=== PATIENT | female | born 1930 | race Asian ===

== ENCOUNTER 2017-06-14 09:58 | Inpatient (IN) | payer MEDICARE, OTHER ==
[~2017-06-14] VITALS: Ht 152.4 cm; Wt 40.8 kg
[2017-06-14 09:58] VITALS: BP 106/52
[2017-06-14] MEDS ORDERED: METFORMIN HCL500 M5 PO (10:00)
[2017-06-14] MEDS ORDERED: PRADAXA150 MG ORAL (10:00)
[2017-06-14] MEDS ORDERED: ATORVASTATIN CA10 MG ORAL (10:02)
[2017-06-14] MEDS ORDERED: ZOLPIDEM TARTRA10 MG ORAL (10:02)
[2017-06-14] MEDS ORDERED: MACRODANTIN50 MG ORAL (10:02)
[2017-06-14 10:56] LABS: MEAN CORPUSCULAR HEMOGLOBIN 29.7 PG (27.0-31.0); MEAN CORPUSCULAR HGB CONC 31.2 G/DL (32.0-36.0); MEAN CORPUSCULAR VOLUME 95 FL (80-99); MEAN PLATELET VOLUME 6.6 FL (6.5-10.1); PLATELET COUNT 484 K/UL (150-450); RED BLOOD COUNT 2.09 M/UL (4.20-5.40); RED CELL DISTRIBUTION WIDTH 13.4 % (11.6-14.8)
[2017-06-14 10:58] LABS: WHITE BLOOD COUNT 24.9 K/UL (4.8-10.8)
[2017-06-14 11:08] LABS: INR 1.7 (0.9-1.1); PROTHROMBIN TIME 18.1 SEC (9.30-11.50)
[2017-06-14] MEDS ORDERED: Cefepime HCl 2 GM in NS 110 ML IV ONE (11:15)
[2017-06-14] MEDS ORDERED: Vancomycin 1 GM in NS 275 ML IVPB ONE (11:15)
[2017-06-14] MEDS ORDERED: Cefepime 2gm ONE (11:20)
[2017-06-14] MEDS ORDERED: Vancomycin 1gm inj IVPB ONE (11:20)
[2017-06-14 11:29] LABS: ANISOCYTOSIS 1+; BAND NEUTROPHILS % (MANUAL) 1 % (0-8); BASOPHILS % (MANUAL) 0 % (0-2); EOSINOPHILS % (MANUAL) 0 % (0-3); HYPOCHROMASIA 4+; LYMPHOCYTES % (MANUAL) 14 % (20-45); NEUTROPHILS % (MANUAL) 79 % (45-75); PLATELET ESTIMATE ADEQUATE; PLATELET MORPHOLOGY NORMAL; TOTAL CELLS COUNTED 100
[2017-06-14 11:37] LABS: ALANINE AMINOTRANSFERASE 125 U/L (12-78); ALBUMIN/GLOBULIN RATIO 0.4 (1.0-2.7); ANION GAP 19 mmol/L (5-15); ASPARTATE AMINO TRANSFERASE 221 U/L (15-37); CALCIUM 8.8 MG/DL (8.5-10.1); CARBON DIOXIDE 13 MMOL/L (21-32); CHLORIDE 103 MMOL/L (98-107); CREATININE 2.5 MG/DL (0.55-1.30); SODIUM 135 MMOL/L (136-145)
[2017-06-14 11:40] VITALS: BP 94/81
[2017-06-14 11:46] LABS: POTASSIUM 6.3 MMOL/L (3.5-5.1)
[2017-06-14] MEDS ORDERED: Sodium Bicarbonate 50ml Carp IV ONE (12:00)
[2017-06-14] MEDS ORDERED: Calcium Gluconate 1gm/10ml vial IVP ONE (12:00)
--- NOTE | 2017-06-14 12:01 | Emergency Room Report ---
History of Present Illness General Chief Complaint: Gastrointestinal Bleed Source: Family Member, EMS Present Illness HPI 87-year-old female, history of chronic A. fib on productive, history of stroke, dementia, presenting with vaginal bleeding. History is obtained by son. The son states that last week patient had episode of vaginal spotting. She then developed urinary retention, a nurse came to her house and place a urinary catheter, ever since then patient has had more spotting and now more vaginal bleeding. Changed about 5 pads today percent. No fever no chills no nausea vomiting or diarrhea. No altered mental status worsen her normal. Patient initially hypotensive in the field by EMS, EMS gave her 500 mL of normal saline. Currently patient is complaining of lower abdominal pain, pointing to suprapubic area. Son states that it is coming from her vagina, as he is checked multiple times, had a bowel movement this morning that was brown without any mixture of blood Allergies: Coded Allergies: No Known Allergies (Unverified , 06/14/17) Patient History Past Medical History: see triage record Past Surgical History: none Pertinent Family History: none Reviewed Nursing Documentation: PMH: Agreed, PSxH: Agreed Nursing Documentation-PMH Past Medical History: No History, Except For Hx Cardiac Problems: Yes - A-fib, cornea implant, glaucoma Hx Diabetes: Yes Hx Neurological Problems: Yes - dementia Hx Cerebrovascular Accident: Yes Review of Systems All Other Systems: negative except mentioned in HPI Physical Exam Vital Signs Date Time Temp Pulse Resp B/P (MAP) Pulse Ox O2 Delivery O2 Flow Rate FiO2 06/14/17 09:48 95.0 99 16 106/52 99 Room Air Sp02 EP Interpretation: reviewed, normal General Appearance: other - Elderly female, thin, appears weak, awake, moving 4 extremities spontaneously Head: normocephalic, atraumatic Eyes: bilateral eye normal inspection, bilateral eye PERRL, bilateral eye EOMI ENT: normal ENT inspection, normal pharynx, normal voice, moist mucus membranes Neck: normal inspection, full range of motion, supple Respiratory: normal inspection, lungs clear, normal breath sounds, no respiratory distress, no retraction, no wheezing, speaking full sentences, chest symmetrical Cardiovascular #1: normal inspection, regular rate, rhythm, no edema, normal capillary refill Cardiovascular #2: 2+ radial (R), 2+ radial (L) Gastrointestinal: other - Mild suprapubic and left lower quadrant tenderness, no guarding or rebound Genitourinary: other - Vaginal exam revealing dark red blood, minimal, no brisk bleeding, rectal exam is negative for blood Musculoskeletal: normal inspection, back normal, normal range of motion, non- tender Neurologic: alert, responsive, motor strength/tone normal, sensory intact Psychiatric: other - Dementia Skin: normal inspection, normal color, no rash, warm/dry, well hydrated, normal turgor Procedures Critical Care Time Critical Care Time 40 minutes of CC time 87-year-old female on Protecto with vaginal bleeding VS: Hypotensive Airway patent. Not hypoxic. PLAN: IV access, labs, lactate, Blood/Urine Cx, Abx, blood transfusion, CT Anticipate admission to Tele vs. BILL CC time also includes review of labs, review of EMR, discussion with family and paperwork from SNF, d/w hospitalist CC could include dosing of pressors, additional Abx CC time does not include procedures Medical Decision Making Diagnostic Impression: Primary Impression: Genitourinary bleeding Additional Impressions: Hyperkalemia Anemia Acute renal failure ER Course 87-year-old female, unproductive, with vaginal bleeding DDX: Vaginal bleeding, ? Endometrial CA? Possible injury to urethra from the Parisi placement one week ago Plan: Obtain labs, ua, EKG, CXR Type and screen, blood transfusion, FFP CT abdomen pelvis ER course: Patient initially hypotensive systolic 90s, blood pressure now improving 129/65 Provide is being transfused in the emergency room, O- BP has remained stable abx given to patient due to elevated white count, however no tachycardia or fever hyperkalemia cocktail given patients BP has remained systolic >110, stable for tele CT abdo pelvis showing possible blood in bladder w/ hydronephrotsis, possible bleeding related to traumatic parisi insertion that was performed by home nurse son had mentioned paged urology, informed Dr Madrigal, paged urology twice however no call back Disposition: Patient is to be admitted to telemetry D/W hospitalist Dr Madrigal Please note that this Emergency Department Report was dictated using [employer] installer technology software, occasionally this can lead to erroneous entry secondary to interpretation by the dictation equipment. EKG Diagnostic Results EP Interpretation: Yes Rate: normal Rhythm: NSR ST Segments: No acute changes ASA given to patient: No Rhythm Strip EP Interpretation: Yes Rate: 97 Rhythm: NSR, no PVCs, no ectopy Chest X-ray CXR: Ordered: Yes 1 view Indication: pain EP interpretation: Yes Interpretation: No consolidation, no effusion, no PTX, no acute cardiopulmonary disease Impression: No acute disease Electronically signed by Jairo Rowan MD Laboratory Tests Test 06/14/17 10:15 White Blood Count 24.9 K/UL (4.8-10.8) *H Red Blood Count 2.09 M/UL (4.20-5.40) L Hemoglobin 6.2 G/DL (12.0-16.0) *L Hematocrit 19.9 % (37.0-47.0) L Mean Corpuscular Volume 95 FL (80-99) Mean Corpuscular Hemoglobin 29.7 PG (27.0-31.0) Mean Corpuscular Hemoglobin Concent 31.2 G/DL (32.0-36.0) L Red Cell Distribution Width 13.4 % (11.6-14.8) Platelet Count 484 K/UL (150-450) H Mean Platelet Volume 6.6 FL (6.5-10.1) Neutrophils (%) (Auto) % (45.0-75.0) Lymphocytes (%) (Auto) % (20.0-45.0) Monocytes (%) (Auto) % (1.0-10.0) Eosinophils (%) (Auto) % (0.0-3.0) Basophils (%) (Auto) % (0.0-2.0) Differential Total Cells Counted 100 Neutrophils % (Manual) 79 % (45-75) H Lymphocytes % (Manual) 14 % (20-45) L Monocytes % (Manual) 6 % (1-10) Eosinophils % (Manual) 0 % (0-3) Basophils % (Manual) 0 % (0-2) Band Neutrophils 1 % (0-8) Platelet Estimate Adequate Platelet Morphology Normal Hypochromasia 4+ Anisocytosis 1+ Prothrombin Time 18.1 SEC (9.30-11.50) H Prothrombin Time INR 1.7 (0.9-1.1) H PTT 45 SEC (23-33) H Sodium Level 135 MMOL/L (136-145) L Potassium Level 6.3 MMOL/L (3.5-5.1) *H Chloride Level 103 MMOL/L (98-107) Carbon Dioxide Level 13 MMOL/L (21-32) L Anion Gap 19 mmol/L (5-15) H Blood Urea Nitrogen 30 mg/dL (7-18) H Creatinine 2.5 MG/DL (0.55-1.30) H Estimate Glomerular Filtration Rate mL/min (>60) Glucose Level 255 MG/DL (74-106) H Calcium Level 8.8 MG/DL (8.5-10.1) Total Bilirubin 0.7 MG/DL (0.2-1.0) Aspartate Amino Transferase (AST) 221 U/L (15-37) H Alanine Aminotransferase (ALT) 125 U/L (12-78) H Alkaline Phosphatase 123 U/L (46-116) H Troponin I 0.015 ng/mL (0.000-0.056) Pro-B-Type Natriuretic Peptide 1150 pg/mL (0-125) H Total Protein 7.0 G/DL (6.4-8.2) Albumin 2.1 G/DL (3.4-5.0) L Globulin 4.9 g/dL Albumin/Globulin Ratio 0.4 (1.0-2.7) L CT/MRI/US Diagnostic Results CT/MRI/US Diagnostic Results : Imaging Test Ordered: CT abdo pelvis Impression Comparison: None Findings: There is marked pneumobilia. The common bile duct and common hepatic duct as well as a left-sided central intrahepatic ducts are somewhat distended by gas. There is a large gas-filled duodenal diverticulum. On a few cuts, a septation between the duodenal diverticulum and the common bile duct is not definitely demonstrated. There are cholecystectomy clips. The bladder is thick walled. It is distended. It is filled with echogenic material which presumably represents blood. There is severe bilateral hydroureter. There is bilateral hydronephrosis, moderate on the left, moderate to severe on the right. There is evidence of cortical volume loss of the right kidney. The left renal parenchyma appears to be preserved. Lack of IV contrast limits assessment of the renal parenchyma. No gross renal parenchymal mass or cyst is demonstrated The appendix is normal. There is colonic diverticulosis which is fairly extensive distally. No definite evidence of diverticulitis. No small bowel distention. No free or loculated intraperitoneal air or fluid is evident. The distal esophagus, stomach, duodenum are unremarkable. Lack of IV contrast limits assessment of the other solid organs. The liver is unremarkable other than the pneumobilia. The pancreas, spleen, adrenals are unremarkable. No retroperitoneal or mesenteric mass or adenopathy. No pelvic mass or adenopathy. The uterus demonstrates arcuate artery calcifications. The lung bases demonstrate slight hyperinflation. There are diffuse reticular opacities, mild bronchiolectasis, and mild bronchial wall thickening. There is mild cardiomegaly. There is a pericardial effusion which measures up to 7 mm in thickness. The bones demonstrate degenerative spondylosis changes. Impression: Thickwalled distended bladder, filled with blood. Etiology of hematuria not demonstrated, possibilities include hemorrhagic cystitis, bladder mass, trauma, among other possibilities Bilateral hydroureter, moderate to severe right and moderate left hydronephrosis. Most likely secondary to bladder outlet obstruction given the above findings. Note evidence of right renal parenchymal loss, indicating hydronephrosis may be long-standing Evidence of prior cholecystectomy Pneumobilia. Most likely indicates prior endobiliary intervention. However, the possibility of a fistula with an adjacent large duodenal diverticulum cannot be completely excluded. Correlate with surgical history, consider ERCP for better characterization if no history of prior biliary intervention Evidence of diverticulitis Pulmonary hyperinflation, likely COPD Bibasilar reticular opacities, mild bronchiectasis and mild bronchial wall thickening, possibly related to the above, suspect chronic in nature 7 mm a pericardial effusion Degenerative spondylosis Last Vital Signs Date Time Temp Pulse Resp B/P (MAP) Pulse Ox O2 Delivery O2 Flow Rate FiO2 06/14/17 09:48 95.0 99 16 106/52 99 Room Air Disposition: ADMITTED INPATIENT Condition: Critical Referrals: NON PHYSICIAN (PCP) Jairo Rowan M.D. Jun 14, 2017 12:01
[2017-06-14 14:00] VITALS: BP 149/75
--- NOTE | 2017-06-14 14:26 | Diagnostic Imaging Report ---
Indication: PAIN history vaginal bleeding, history of urinary retention Technique: Spiral acquisitions obtained through the abdomen and pelvis. No oral contrast utilized, per emergency room physician request No IV contrast utilized, per ER physician request.. Multiplanar reconstructions were generated. Total dose length product 426 mGycm. CTDIvol(s) 10 mGy. Dose reduction achieved using automated exposure control Comparison: None Findings: There is marked pneumobilia. The common bile duct and common hepatic duct as well as a left-sided central intrahepatic ducts are somewhat distended by gas. There is a large gas-filled duodenal diverticulum. On a few cuts, a septation between the duodenal diverticulum and the common bile duct is not definitely demonstrated. There are cholecystectomy clips. The bladder is thick walled. It is distended. It is filled with echogenic material which presumably represents blood. There is severe bilateral hydroureter. There is bilateral hydronephrosis, moderate on the left, moderate to severe on the right. There is evidence of cortical volume loss of the right kidney. The left renal parenchyma appears to be preserved. Lack of IV contrast limits assessment of the renal parenchyma. No gross renal parenchymal mass or cyst is demonstrated The appendix is normal. There is colonic diverticulosis which is fairly extensive distally. No definite evidence of diverticulitis. No small bowel distention. No free or loculated intraperitoneal air or fluid is evident. The distal esophagus, stomach, duodenum are unremarkable. Lack of IV contrast limits assessment of the other solid organs. The liver is unremarkable other than the pneumobilia. The pancreas, spleen, adrenals are unremarkable. No retroperitoneal or mesenteric mass or adenopathy. No pelvic mass or adenopathy. The uterus demonstrates arcuate artery calcifications. The lung bases demonstrate slight hyperinflation. There are diffuse reticular opacities, mild bronchiolectasis, and mild bronchial wall thickening. There is mild cardiomegaly. There is a pericardial effusion which measures up to 7 mm in thickness. The bones demonstrate degenerative spondylosis changes. Impression: Thickwalled distended bladder, filled with blood. Etiology of hematuria not demonstrated, possibilities include hemorrhagic cystitis, bladder mass, trauma, among other possibilities Bilateral hydroureter, moderate to severe right and moderate left hydronephrosis. Most likely secondary to bladder outlet obstruction given the above findings. Note evidence of right renal parenchymal loss, indicating hydronephrosis may be long-standing Evidence of prior cholecystectomy Pneumobilia. Most likely indicates prior endobiliary intervention. However, the possibility of a fistula with an adjacent large duodenal diverticulum cannot be completely excluded. Correlate with surgical history, consider ERCP for better characterization if no history of prior biliary intervention Evidence of diverticulitis Pulmonary hyperinflation, likely COPD Bibasilar reticular opacities, mild bronchiectasis and mild bronchial wall thickening, possibly related to the above, suspect chronic in nature 7 mm a pericardial effusion Degenerative spondylosis This agrees with the preliminary interpretation provided previously by Dr. Mcduffie The CT scanner at [facility] is accredited by the [employer] [place] [employer] and the scans are performed using protocols designed to limit radiation exposure to as low as reasonably achievable to attain images of sufficient resolution adequate for diagnostic evaluation.
--- NOTE | 2017-06-14 15:04 | Diagnostic Imaging Report ---
Indication: PAIN Technique: One view of the chest Comparison: none Findings: Lungs and pleural spaces are clear. Heart size is normal. The aorta is tortuous and calcified. There is calcific tendinosis of the left shoulder. There is marked chronic appearing abnormality of the right shoulder, with severe deformity of the humeral head and glenoid degeneration of the intervening articulation. There are cholecystectomy clips Impression: No acute cardio pulmonary process. Other findings as noted
[2017-06-14 16:00] VITALS: BP 153/86
[2017-06-14] MEDS ORDERED: OFLOXACIN5 ML OT (16:49)
[2017-06-14] MEDS ORDERED: LOTEMAX1 DROP OP (16:49)
[2017-06-14] MEDS ORDERED: TRAVATAN Z5 ML OP (16:49)
[2017-06-14] MEDS ORDERED: COSOPT EYE DROP10 M1 OP (16:49)
[2017-06-14] MEDS ORDERED: Nitrofurantoin Macrocrystal 50mg cap ORAL SCH (17:15)
[2017-06-14] MEDS ORDERED: Zolpidem 5mg tab ORAL PRN (17:15)
--- NOTE | 2017-06-14 17:59 | Infectious Diseases Prog Note ---
Assessment/Plan Problems: (1) Septic shock Assessment & Plan: due to source with significant leukocytosis, will send blood culture and start zosyn empiric coverage (2) Pyelonephritis Assessment & Plan: due to obstructive uropathy with hydronephrosis , will send urine culture and start zosyn , recommend urology eval (3) Hydronephrosis Assessment & Plan: due to bladder outlet obstruction, keep parisi catheter, consult urology to rule out bladder laceration (4) Shock liver Assessment & Plan: due to sepsis, avoid hepatotoxic meds , monitor LFT, will screen for hepatitis (5) Vagina bleeding Assessment & Plan: needs to rule out bladder laceration due to recent parisi catheter removal , recommend urology eval ARYA , monitor H/H , transfuse blood as needed (6) Acute blood loss anemia Assessment & Plan: due to the above, monitor H/H, transfuse blood as needed to keep HG >7 Subjective Allergies: Coded Allergies: No Known Allergies (Unverified , 06/14/17) Objective Vital Signs Last 24 Hour Vital Signs Date Time Temp Pulse Resp B/P (MAP) Pulse Ox O2 Delivery O2 Flow Rate FiO2 06/14/17 16:00 96.8 108 17 153/86 Room Air 06/14/17 12:05 97.2 99 15 06/14/17 11:55 97.0 98 18 06/14/17 11:40 97.0 99 20 06/14/17 09:58 101 20 106/52 99 Room Air 06/14/17 09:48 95.0 99 16 106/52 99 Room Air Height (Feet): 5 Weight (Pounds): 90 Laboratory Tests Test 06/14/17 10:15 White Blood Count 24.9 K/UL (4.8-10.8) *H Red Blood Count 2.09 M/UL (4.20-5.40) L Hemoglobin 6.2 G/DL (12.0-16.0) *L Hematocrit 19.9 % (37.0-47.0) L Mean Corpuscular Volume 95 FL (80-99) Mean Corpuscular Hemoglobin 29.7 PG (27.0-31.0) Mean Corpuscular Hemoglobin Concent 31.2 G/DL (32.0-36.0) L Red Cell Distribution Width 13.4 % (11.6-14.8) Platelet Count 484 K/UL (150-450) H Mean Platelet Volume 6.6 FL (6.5-10.1) Neutrophils (%) (Auto) % (45.0-75.0) Lymphocytes (%) (Auto) % (20.0-45.0) Monocytes (%) (Auto) % (1.0-10.0) Eosinophils (%) (Auto) % (0.0-3.0) Basophils (%) (Auto) % (0.0-2.0) Differential Total Cells Counted 100 Neutrophils % (Manual) 79 % (45-75) H Lymphocytes % (Manual) 14 % (20-45) L Monocytes % (Manual) 6 % (1-10) Eosinophils % (Manual) 0 % (0-3) Basophils % (Manual) 0 % (0-2) Band Neutrophils 1 % (0-8) Platelet Estimate Adequate Platelet Morphology Normal Hypochromasia 4+ Anisocytosis 1+ Prothrombin Time 18.1 SEC (9.30-11.50) H Prothromb Time International Ratio 1.7 (0.9-1.1) H Activated Partial Thromboplast Time 45 SEC (23-33) H Sodium Level 135 MMOL/L (136-145) L Potassium Level 6.3 MMOL/L (3.5-5.1) *H Chloride Level 103 MMOL/L (98-107) Carbon Dioxide Level 13 MMOL/L (21-32) L Anion Gap 19 mmol/L (5-15) H Blood Urea Nitrogen 30 mg/dL (7-18) H Creatinine 2.5 MG/DL (0.55-1.30) H Estimat Glomerular Filtration Rate mL/min (>60) Glucose Level 255 MG/DL (74-106) H Calcium Level 8.8 MG/DL (8.5-10.1) Total Bilirubin 0.7 MG/DL (0.2-1.0) Aspartate Amino Transf (AST/SGOT) 221 U/L (15-37) H Alanine Aminotransferase (ALT/SGPT) 125 U/L (12-78) H Alkaline Phosphatase 123 U/L (46-116) H Troponin I 0.015 ng/mL (0.000-0.056) Pro-B-Type Natriuretic Peptide 1150 pg/mL (0-125) H Total Protein 7.0 G/DL (6.4-8.2) Albumin 2.1 G/DL (3.4-5.0) L Globulin 4.9 g/dL Albumin/Globulin Ratio 0.4 (1.0-2.7) L Current Medications Medications (Trade) Dose Ordered Sig/Nikolai Route PRN Reason Start Time Stop Time Status Last Admin Dose Admin Atorvastatin Calcium (Lipitor) 10 mg BEDTIME ORAL 06/14/17 21:00 07/14/17 20:59 Dextrose (Dextrose 50%) STAT PRN IV Hypoglycemia 06/14/17 18:00 07/14/17 17:59 Dorzolamide/ Timolol (Cosopt) 1 drop BID BOTH EYES 06/14/17 18:00 07/14/17 17:59 UNV Insulin Aspart (NovoLOG) BEFORE MEALS AND HS SUBQ 06/14/17 21:00 07/14/17 20:59 Nitrofurantoin (Macrodantin) 100 mg DAILY ORAL 06/14/17 17:15 06/21/17 17:14 UNV Patient Own Medication (Patient's Own Med) 1 ea BEDTIME BOTH EYES 06/14/17 21:00 07/14/17 20:59 UNV Patient Own Medication (Patient's Own Med) 1 ea DAILY BOTH EYES 06/14/17 17:15 07/14/17 17:14 UNV Patient Own Medication (Patient's Own Med) 1 ea EVERY 6 HOURS BOTH EYES 06/14/17 18:00 07/14/17 17:59 UNV Zolpidem Tartrate (Ambien) 10 mg BEDTIME PRN ORAL Insomnia 06/14/17 17:15 06/21/17 17:14 UNV Rocio King M.D. Jun 14, 2017 17:59
[2017-06-14 19:03] LABS: MEAN CORPUSCULAR HEMOGLOBIN 29.3 PG (27.0-31.0); MEAN CORPUSCULAR HGB CONC 32.6 G/DL (32.0-36.0); MEAN CORPUSCULAR VOLUME 90 FL (80-99); MEAN PLATELET VOLUME 6.2 FL (6.5-10.1); PLATELET COUNT 332 K/UL (150-450); RED BLOOD COUNT 2.88 M/UL (4.20-5.40); RED CELL DISTRIBUTION WIDTH 12.9 % (11.6-14.8)
[2017-06-14 20:00] VITALS: BP 158/61
[2017-06-14] MEDS: Piperacillin/Tazobactam 3.375 GM in NS 55 ML IVPB SCH ×2 (20:00→22:00)
[2017-06-14 21:00] LABS: BAND NEUTROPHILS % (MANUAL) 4 % (0-8); LYMPHOCYTES % (MANUAL) 5 % (20-45); NEUTROPHILS % (MANUAL) 87 % (45-75); TOTAL CELLS COUNTED 100
[2017-06-14 21:01] LABS: ANISOCYTOSIS 1+; BASOPHILS % (MANUAL) 0 % (0-2); EOSINOPHILS % (MANUAL) 0 % (0-3); PLATELET ESTIMATE ADEQUATE
[2017-06-14 21:02] LABS: PLATELET MORPHOLOGY NORMAL; POLYCHROMASIA 1+
--- NOTE | 2017-06-14 21:50 | Consultation ---
History of Present Illness General Date patient seen: Jun 14, 2017 Time patient seen: 21:44 Chief Complaint: Vaginal bleed Referring physician: annette Reason for Consultation: vaginal bleed/hematuria Present Illness HPI 87 yo female with questionable vaginal bleeding. Concern for urethral injury when home health placed in and out cath. Found to be bloody. Since then patient has not been able to void and has been passing blood per vagina. patient was evaluated in ER and found to have large bladder full of blood and bilateral hydro. Catheter was not placed. patient seems uncomfortable currently. Allergies: Coded Allergies: No Known Allergies (Unverified , 06/14/17) Medication History Scheduled Atorvastatin Calcium* (Lipitor*), 10 MG ORAL BEDTIME, (Reported) Dabigatran Etexilate Mesylate* (Pradaxa*), 75 MG ORAL DAILY, (Reported) Metformin HCl (Metformin HCl ER), 500 MG PO DAILY, (Reported) Nitrofurantoin Macrocrystal (Macrodantin*), 100 MG ORAL DAILY, (Reported) Scheduled PRN Zolpidem Tartrate* (Zolpidem Tartrate*), 10 MG ORAL BEDTIME PRN for Insomnia, ( Reported) Miscellaneous Medications Dorzolamide Hcl/Timolol Maleat (Cosopt Eye Drops), 10 ML OP, (Reported) Loteprednol Etabonate (Lotemax), 1 DROP OP, (Reported) Ofloxacin (Ofloxacin), 5 ML OT, (Reported) Travoprost (Travatan Z), 5 ML OP, (Reported) Patient History Limited by: language barrier, medical condition History Provided By: Family Member, Medical Record Healthcare decision maker son Resuscitation status Do Not Resuscitate Advanced Directive on File No Past Medical/Surgical History Past Medical/Surgical History: (1) Acute blood loss anemia Review of Systems All Other Systems: negative except mentioned in HPI Physical Exam General Appearance: moderate distress Respiratory/Chest: lungs clear Abdomen: non tender, soft Extremities: normal range of motion, non-tender Skin Exam: warm/dry Neurologic: alert Last 24 Hour Vital Signs Date Time Temp Pulse Resp B/P (MAP) Pulse Ox O2 Delivery O2 Flow Rate FiO2 06/14/17 20:00 97.0 100 22 158/61 98 Room Air 06/14/17 16:05 112 06/14/17 16:00 96.8 108 17 153/86 Room Air 06/14/17 14:30 97.0 106 21 149/75 99 Room Air 06/14/17 14:00 98.0 106 21 149/75 99 Room Air 06/14/17 12:05 97.0 105 21 06/14/17 12:05 97.2 99 15 06/14/17 11:55 97.0 98 18 06/14/17 11:50 97.2 100 23 06/14/17 11:40 97.0 99 20 94/81 99 Room Air 06/14/17 11:40 97.0 99 20 06/14/17 09:58 101 20 106/52 99 Room Air 06/14/17 09:48 95.0 99 16 106/52 99 Room Air Intake and Output 06/14/17 06/15/17 19:00 07:00 Intake Total 1308.0 ml Balance 1308.0 ml Intake Oral 100 ml IV Total 385.0 ml Blood Product 823 ml # Voids 3 # Bowel Movements 4 Laboratory Tests Test 06/14/17 10:15 06/14/17 18:30 White Blood Count 24.9 K/UL (4.8-10.8) *H 32.0 K/UL (4.8-10.8) *H Red Blood Count 2.09 M/UL (4.20-5.40) L 2.88 M/UL (4.20-5.40) L Hemoglobin 6.2 G/DL (12.0-16.0) *L 8.4 G/DL (12.0-16.0) #L Hematocrit 19.9 % (37.0-47.0) L 25.9 % (37.0-47.0) #L Mean Corpuscular Volume 95 FL (80-99) 90 FL (80-99) Mean Corpuscular Hemoglobin 29.7 PG (27.0-31.0) 29.3 PG (27.0-31.0) Mean Corpuscular Hemoglobin Concent 31.2 G/DL (32.0-36.0) L 32.6 G/DL (32.0-36.0) Red Cell Distribution Width 13.4 % (11.6-14.8) 12.9 % (11.6-14.8) Platelet Count 484 K/UL (150-450) H 332 K/UL (150-450) Mean Platelet Volume 6.6 FL (6.5-10.1) 6.2 FL (6.5-10.1) L Neutrophils (%) (Auto) % (45.0-75.0) % (45.0-75.0) Lymphocytes (%) (Auto) % (20.0-45.0) % (20.0-45.0) Monocytes (%) (Auto) % (1.0-10.0) % (1.0-10.0) Eosinophils (%) (Auto) % (0.0-3.0) % (0.0-3.0) Basophils (%) (Auto) % (0.0-2.0) % (0.0-2.0) Differential Total Cells Counted 100 100 Neutrophils % (Manual) 79 % (45-75) H 87 % (45-75) H Lymphocytes % (Manual) 14 % (20-45) L 5 % (20-45) L Monocytes % (Manual) 6 % (1-10) 4 % (1-10) Eosinophils % (Manual) 0 % (0-3) 0 % (0-3) Basophils % (Manual) 0 % (0-2) 0 % (0-2) Band Neutrophils 1 % (0-8) 4 % (0-8) Platelet Estimate Adequate Adequate Platelet Morphology Normal Normal Hypochromasia 4+ Anisocytosis 1+ 1+ Prothrombin Time 18.1 SEC (9.30-11.50) H Prothromb Time International Ratio 1.7 (0.9-1.1) H Activated Partial Thromboplast Time 45 SEC (23-33) H Sodium Level 135 MMOL/L (136-145) L Potassium Level 6.3 MMOL/L (3.5-5.1) *H 4.7 MMOL/L (3.5-5.1) Chloride Level 103 MMOL/L (98-107) Carbon Dioxide Level 13 MMOL/L (21-32) L Anion Gap 19 mmol/L (5-15) H Blood Urea Nitrogen 30 mg/dL (7-18) H Creatinine 2.5 MG/DL (0.55-1.30) H Estimat Glomerular Filtration Rate mL/min (>60) Glucose Level 255 MG/DL (74-106) H Calcium Level 8.8 MG/DL (8.5-10.1) Total Bilirubin 0.7 MG/DL (0.2-1.0) Aspartate Amino Transf (AST/SGOT) 221 U/L (15-37) H Alanine Aminotransferase (ALT/SGPT) 125 U/L (12-78) H Alkaline Phosphatase 123 U/L (46-116) H Troponin I 0.015 ng/mL (0.000-0.056) Pro-B-Type Natriuretic Peptide 1150 pg/mL (0-125) H Total Protein 7.0 G/DL (6.4-8.2) Albumin 2.1 G/DL (3.4-5.0) L Globulin 4.9 g/dL Albumin/Globulin Ratio 0.4 (1.0-2.7) L Polychromasia 1+ Height (Feet): 5 Weight (Pounds): 90 Medications Current Medications Medications (Trade) Dose Ordered Sig/Nikolai Route PRN Reason Start Time Stop Time Status Last Admin Dose Admin Atorvastatin Calcium (Lipitor) 10 mg BEDTIME ORAL 06/14/17 21:00 07/14/17 20:59 Dextrose (Dextrose 50%) STAT PRN IV Hypoglycemia 06/14/17 18:00 07/14/17 17:59 Dorzolamide/ Timolol (Cosopt) 1 drop BID@0600,1800 BOTH EYES 06/14/17 20:00 07/14/17 19:59 Insulin Aspart (NovoLOG) BEFORE MEALS AND HS SUBQ 06/14/17 21:00 07/14/17 20:59 Patient Own Medication (Patient's Own Med) 1 ea DAILY BOTH EYES 06/15/17 09:00 07/15/17 08:59 Patient Own Medication (Patient's Own Med) 1 ea Q24H BOTH EYES 06/15/17 00:00 07/15/17 00:00 Patient Own Medication (Patient's Own Med) 1 ea Q6HR BOTH EYES 06/14/17 19:30 07/14/17 19:29 Piperacillin Sod/ Tazobactam Sod 3.375 gm/Sodium Chloride 55 ml @ 13.75 mls/ hr Q12HR@0800,2000 IVPB 06/14/17 18:00 06/21/17 17:59 Zolpidem Tartrate (Ambien) 5 mg HSPRN PRN ORAL Insomnia 06/14/17 17:15 06/21/17 17:14 Objective Narrative Under sterile conditions, vaginal exam shows severely atrophic vagina. [address] parisi passed, 20 mL water filled in balloon. Immediate drainage of bloody urine. Irrigated, but patient was having severe spasms. Difficult to irrigate clots out due to spasms around catheter. Bladder scan then done showing 123 mL residual. Assessment/Plan Status: stable Assessment/Plan 87 yo female with hematuria, likely source of vaginal bleeding was overflow incontinence of clots. Catheter placed, but patient seems to have evacuated most of clots already. Bladder is very spasmodic and difficult to irrigate. Responded to blood transfusion nicely. Unclear etiology for hematuria, but highly UNlikely related to in and out cath done by home health a few days ago. Discussed with patient's son, may need cystoscopy to better evaluate given severe spasms. Will monitor H/H for 24 hours and leave parisi in and try to treat spasms before pursuing cysto under anesthesia. 1. AM labs, monitor H/H 2. leave parisi in, manually irrigate prn 3. re-evaluate h/h and urine quality tomorrow. Martinez Lamb M.D. Jun 14, 2017 21:49
[2017-06-14] MEDS: Cosopt Opth Soln 10 mL Btl BOTH EYES SCH (22:00)
[2017-06-14] MEDS ORDERED: Morphine Sulfate 2mg/ml Inj IVP PRN (22:00)
[2017-06-14] MEDS: NovoLOG Insulin Flexpen SUBQ SCH (22:05)
[2017-06-14] MEDS ORDERED: Morphine Sulfate 2mg/ml Inj IVP ONE (22:30)
[2017-06-15] MEDS ORDERED: TRAVATAN Z BOTH EYES SCH
[2017-06-15 00:35] VITALS: BP 90/56
[2017-06-15 01:44] LABS: MEAN CORPUSCULAR HEMOGLOBIN 29.4 PG (27.0-31.0); MEAN CORPUSCULAR HGB CONC 32.8 G/DL (32.0-36.0); MEAN CORPUSCULAR VOLUME 90 FL (80-99); MEAN PLATELET VOLUME 6.7 FL (6.5-10.1); PLATELET COUNT 337 K/UL (150-450); RED CELL DISTRIBUTION WIDTH 13.1 % (11.6-14.8)
[2017-06-15 01:49] LABS: WHITE BLOOD COUNT 35.8 K/UL (4.8-10.8)
[2017-06-15] MEDS ORDERED: Sodium Chloride 500ML 500 ML IVPB ONE (03:15)
--- NOTE | 2017-06-15 04:02 | HX and Phyl Repo 2 Sig ---
DATE OF ADMISSION: 06/14/2017 INTERNAL MEDICINE HISTORY AND PHYSICAL HISTORY OF PRESENT ILLNESS: The patient is an 87-year-old female with past medical history significant for atrial fibrillation, cornea implants, glaucoma, severe dementia, and bedbound, who initially presented with episodes of vaginal bleeding. May I mention that the patient is confused at this time. Therefore, history was obtained from the patient's son, who is also the caregiver. According to her son, the patient started bleeding after a Valdez catheter was inserted by a home care nurse, who came in to obtain some sample for urinalysis. The patient's son stated that the patient has some spotting, which has been ongoing for a couple of months, but has never bled the way she was bleeding after the urine catheterization. She did state that he mentioned it to Dr. Manish Garcia, the primary care physician, who advised to bring the patient to emergency room. Bleeding according to him is bright red in color with clots and heavy. He denies any other symptoms at this time. No fever. No chills. No nausea. No vomiting. No abdominal symptoms. In the emergency room, the patient was found to have low H and H and was transfused with two units of packed red cells and also fluid was given. The patient is lying in bed at this time bleeding, but in no apparent distress. PAST MEDICAL HISTORY: Significant for atrial fibrillation, cornea implants, glaucoma, diabetes, dementia, and history of cerebrovascular accident. ALLERGIES: She has no known allergies. HOME MEDICATIONS: Atorvastatin 10 mg p.o. at bedtime, Pradaxa 75 mg p.o. daily, Cosopt eyedrops 10 mL daily, Lotemax 1 drop both eyes daily, metformin 500 mg p.o. daily, ofloxacin 5 mL to right eye q.i.d., Travatan 1 drop both eyes daily, and Ambien 10 mg p.o. nightly p.r.n. SOCIAL HISTORY: She lives at home with family. No history of alcohol use, smoking, or illicit drug use. FAMILY HISTORY: Noncontributory. REVIEW OF SYSTEMS: Unobtainable at this time due to the patient's altered mental status. PHYSICAL EXAMINATION: GENERAL: This is an 87-year-old female in bed, in no apparent distress. VITAL SIGNS: Blood pressure 153/86, heart rate is 108, respiratory rate 17, temperature is 96.8 degrees, and O2 saturation is 99% on room air. HEENT: Head is normocephalic and atraumatic. Pupils are equal, round, and reactive to light and accommodation. NECK: Supple. No JVD noted. LUNGS: Clear to auscultation bilaterally. No wheezing. No crackles. ABDOMEN: Soft, nontender, and nondistended. Positive bowel sounds. CARDIOVASCULAR: Irregular. EXTREMITIES: No edema. No cyanosis. No clubbing. GENITOURINARY: Positive bleeding, bright red. NEUROLOGIC: The patient is altered. EXTREMITIES: Bilateral lower extremity contractures. LABORATORY DATA: CBC, white count 24.9, hemoglobin 6.7, hematocrit 19.9, and a platelet count of 484,000. BMP, sodium is 135, potassium 6.3, chloride 103, bicarbonate is 13, BUN 30, creatinine 2.5, and blood glucose is 255. AST 221, ALT 125, and alkaline phosphatase is 123. Troponin is normal at 0.015. ProBNP is 1150. RADIOLOGIC FINDINGS: CT of abdomen and pelvis without contrast, impression, thick wall distended bladder filled with blood. Etiology of hematuria not demonstrated. Possibilities include hemorrhagic cystitis, bladder mass, and stroma among other possibilities. Bilateral hydroureter, [id number] right and moderate left hydronephrosis. Most likely secondary to bladder outlet obstruction given the above findings. Note, evidence of right renal parenchymal loss indicating hydronephrosis, may be longstanding. Evidence of cholecystectomy, hemobilia. Mostly indicates prior endobiliary intervention. However, the possibility of a fistula with an adjacent large duodenal diverticulum cannot be completely excluded. Correlate with surgical history. Consider ERCP for better characterization if no history of prior biliary intervention. Evidence of diverticulitis. Pulmonary hyperinflation, likely COPD. Bibasilar reticular opacities, mild bronchiectasis, and mild bronchial wall thickening, possibly related to the above, suspect chronic in nature, 7 mm pericardial effusion. Degenerative spondylolysis. On chest x-ray, impression, no acute cardiopulmonary process. ASSESSMENT: 1. Genitourinary bleeding. 2. Congestive heart failure. 3. Sepsis. 4. Hydronephrosis. 5. Tachycardia. 6. Chronic obstructive pulmonary disease. 7. Anemia secondary to genitourinary bleeding. 8. Hyperkalemia. 9. Do not resuscitate status. 10. Diabetes. 11. Hypotension. 12. Elevated liver enzymes. 13. Sepsis. PLAN: Urology consult has been initiated with Dr. Lamb and follow up recommendations. We will monitor H and H and transfuse as needed. We will order H and H and lab q.8 h. We will start her on potassium level and correct as needed. Continue with the current IV fluid. Swallow evaluation in the morning. We will monitor the patient's neurological status. We will obtain a Hematology consult as well. We will also obtain a Gastrointestinal consult due to elevated liver enzymes. Cardiology consult will be initiated due to the patient's elevated heart rate and congestive heart failure. We will continue home medications except Pradaxa. We will monitor the patient's overall response to treatments and follow up with consults recommendations. We will also obtain an ID consult on this patient due to sepsis. Isaias Vogel M.D. Maricruz Arnold DR: DARIAN JOB#: [id number] CC:
[2017-06-15 04:29] LABS: APPEARANCE,URINE CLOUDY; KETONES,URINE NEGATIVE (NEGATIVE); LEUKOCYTE ESTERASE ,URINE 1+ (NEGATIVE); NITRITE,URINE NEGATIVE (NEGATIVE); PH,URINE 7 (4.5-8.0); PROTEIN,URINE 4+ (NEGATIVE); UROBILINOGEN,URINE NORMAL MG/DL (0.0-1.0)
[2017-06-15 04:50] LABS: BACTERIA,URINE FEW /HPF; RBC,URINE TNTC /HPF (0 - 2); YEAST,URINE FEW /HPF
[2017-06-15 04:52] VITALS: BP 98/40
--- NOTE | 2017-06-15 05:02 | Consultation ---
DATE OF CONSULTATION: 06/14/2017 INFECTIOUS DISEASES CONSULTATION CONSULTING PHYSICIAN: Rocio King M.D. REQUESTING PHYSICIAN: Isaias Vogel M.D. REASON FOR CONSULTATION: Septic shock with leukocytosis, pyelonephritis, and multiorgan failure with vaginal bleeding. Recommendation for antibiotics treatment and management. HISTORY OF PRESENT ILLNESS: The patient is an 87-year-old female with past medical history of atrial fibrillation, glaucoma status post cornea implant, dementia, diabetes and CVA, was brought into the emergency room at [facility] by her son due to vaginal bleeding. As per the son, the patient had urinary retention started this week and she had a straight cath done at home by home health care visiting nurse, which was sent by her primary care physician to obtain urine sample to rule out evidence of few urinary tract infection. The patient did not have any complication at the time of the straight Valdez cath when it was done but after that she started having vaginal bleeding on the next day, which was Saturday as per the son. Her urinalysis and culture was negative for any infection but continued to have vaginal bleeding with clotting and her urine output decreased so she was brought into the emergency room at [facility] for evaluation and management. The patient did not have any fever or chills but she was complaining of pain at the genital area and the back. In the ER, the patient was found to be in shock and septic with fever and leukocytosis of 26,000. CT scan of the abdomen and pelvis showed significant hydronephrosis and thickened wall of the bladder due to cystitis. The patient was admitted to the hospital for further evaluation and management and I was consulted by the primary provider team for antibiotics treatment and further care for her sepsis and kidney infection. As of note, the patient is a poor historian cannot provide any history. History was mainly obtained from the son and the medical record. PAST MEDICAL HISTORY: Significant for atrial fibrillation, glaucoma status post cornea implant, diabetes, dementia and CVA. PAST SURGICAL HISTORY: She had cornea implants in both eyes. ALLERGIES: She has no known drug allergy. MEDICATIONS: The patient is on nitrofurantoin by the admitting team. For the rest of her medications, please refer to MAR. SOCIAL HISTORY: The patient lives at home with family. No recent drugs, tobacco, or alcohol. FAMILY HISTORY: Unable to obtain at this point. REVIEW OF SYSTEMS: Unable to obtain at this point. The patient is demented. Cannot provide any history. PHYSICAL EXAMINATION: VITAL SIGNS: Temperature 96.8, pulse 108, respirations 17, blood pressure 153/86, and saturation 99% on room air. GENERAL: This is an elderly female, cachectic, lying in bed, quiet and comfortable, son at the bedside. She is responsive, not in acute distress. HEENT: Normocephalic and atraumatic. Pupils are not reactive to light status post corneal transplant. Moist oral mucosa. No exudate. NECK: Supple. No lymphadenopathy. CARDIOVASCULAR: She is tachycardic. S1 and S2 normal. No murmur. LUNGS: Clear bilaterally. Diminished breathing sounds at the bases. No wheezing or rhonchi. ABDOMEN: Soft and tender in the suprapubic area. No rebound. No organomegaly. No ascites. GENITOURINARY: She had dry blood in the genital area coming from the vagina. EXTREMITIES: No edema or cyanosis. Muscle atrophy in both legs. SKIN: No rash. No hives. LABORATORY DATA: [place] [address].9, hemoglobin of 6.2, and platelet count of 484. BUN of 30 and creatinine of 2.5. AST of 221, ALT of 125, and alkaline phosphatase of 123. IMAGING: Chest x-ray showed no acute cardiopulmonary process. CT scan of the abdomen and pelvis without contrast showed thickened distended gallbladder with blood inside, possible cystitis. She had bilateral hydronephrosis on both side due to bladder outlet obstruction and pneumobilia with evidence of diverticulitis. ASSESSMENT AND RECOMMENDATION: 1. Septic shock suspect due to genitourinary source with significant leukocytosis. We will send blood culture and urine culture. We will start Zosyn empiric coverage. Pending culture results. 2. Pyelonephritis due to obstructive uropathy and hydronephrosis. We will send urine culture and start Zosyn empiric treatment. Recommend urology evaluation to evaluate hydronephrosis goals. 3. Hydronephrosis due to bladder outlet obstruction. Recommend Valdez catheter and Urology consult and possibly cystoscopy to further evaluate her bladder and rule out tumor as an etiology of her bleeding and hydronephrosis. 4. Acute diverticulitis. The patient is already on intravenous antibiotics treatment. 5. Vaginal bleeding suspect either bladder laceration from recent Valdez catheter removal or malignancy. Recommend Urology evaluation and OB Gynae for further assessment. Monitor hemoglobin and hematocrit. Transfuse blood as needed. 6. Acute blood loss anemia due to the above. Monitor hemoglobin and hematocrit. Transfuse blood as needed to keep hemoglobin more than 7. Thank you for the consult. Infectious Disease will continue to follow. Rocio King M.D. DR: KEYLA JOB#: [id number] CC:
[2017-06-15 05:07] LABS: ANISOCYTOSIS 1+; BAND NEUTROPHILS % (MANUAL) 35 % (0-8); BASOPHILS % (MANUAL) 0 % (0-2); EOSINOPHILS % (MANUAL) 1 % (0-3); LYMPHOCYTES % (MANUAL) 4 % (20-45); NEUTROPHILS % (MANUAL) 60 % (45-75); PLATELET ESTIMATE ADEQUATE; PLATELET MORPHOLOGY NORMAL; POIKILOCYTOSIS 1+; TOTAL CELLS COUNTED 100
[2017-06-15] MEDS: Cosopt Opth Soln 10 mL Btl BOTH EYES SCH (06:00)
[2017-06-15 06:25] LABS: MEAN CORPUSCULAR HEMOGLOBIN 30.6 PG (27.0-31.0); MEAN CORPUSCULAR VOLUME 90 FL (80-99); MEAN PLATELET VOLUME 7.1 FL (6.5-10.1); PLATELET COUNT 315 K/UL (150-450); RED BLOOD COUNT 2.76 M/UL (4.20-5.40); RED CELL DISTRIBUTION WIDTH 13.4 % (11.6-14.8)
[2017-06-15] MEDS ORDERED: metFORMIN 500mg tab ORAL SCH (06:30)
[2017-06-15] MEDS: NovoLOG Insulin Flexpen SUBQ SCH (06:30)
[2017-06-15 06:35] LABS: WHITE BLOOD COUNT 27.4 K/UL (4.8-10.8)
[2017-06-15] MEDS ORDERED: NS 500ML ONE ×2 (07:44→10:47)
[2017-06-15] MEDS ORDERED: NS 275ml ONE (07:44)
[2017-06-15] MEDS ORDERED: Tubing Blood Filter IV ONE (07:44)
[2017-06-15 08:27] LABS: ALANINE AMINOTRANSFERASE 281 U/L (12-78); ALBUMIN/GLOBULIN RATIO 0.4 (1.0-2.7); ANION GAP 18 mmol/L (5-15); ASPARTATE AMINO TRANSFERASE 311 U/L (15-37); CARBON DIOXIDE 14 MMOL/L (21-32); CHLORIDE 110 MMOL/L (98-107); CREATININE 3.6 MG/DL (0.55-1.30); POTASSIUM 4.5 MMOL/L (3.5-5.1); SODIUM 142 MMOL/L (136-145); THYROID STIMULATING HORMONE 2.424 uiU/mL (0.360-3.740); TOTAL PROTEIN 5.5 G/DL (6.4-8.2)
[2017-06-15] MEDS ORDERED: D5 1/2NS 1,000 ML IV SCH (09:00)
[2017-06-15] MEDS ORDERED: OPTH BOTH EYES SCH ×2 (09:00)
[2017-06-15] MEDS ORDERED: LOTEMAX 0.5% BOTH EYES SCH (09:00)
[2017-06-15 09:27] LABS: BAND NEUTROPHILS % (MANUAL) 5 % (0-8); BASOPHILS % (MANUAL) 0 % (0-2); EOSINOPHILS % (MANUAL) 0 % (0-3); LYMPHOCYTES % (MANUAL) 1 % (20-45); NEUTROPHILS % (MANUAL) 93 % (45-75); PLATELET ESTIMATE ADEQUATE; PLATELET MORPHOLOGY NORMAL; TOTAL CELLS COUNTED 100
[2017-06-15] MEDS ORDERED: Sterile Water Irrig 1000ml IRRIG ONE (10:47)
[2017-06-15] MEDS ORDERED: Tubing IV Secondary IV ONE (10:47)
--- NOTE | 2017-06-17 12:24 | Discharge Summary ---
Discharge Summary Hospital Course Date of Admission Jun 14, 2017 at 10:50 Date of Discharge Jun 15, 2017 at 07:45 Admitting Diagnosis VAGINAL BLEEDING FRANKLIN Laboy is a 87 year old female who was admitted on Jun 14, 2017 at 10:50 for Vaginal Bleeding Hospital Course summary #[id number] Discharge Discharge Disposition Patient Discharge Diagnoses: Discharge Instructions Discharge Instructions Special Instructions I have been assigned to complete a D/C Summary on this account. I was not involved in the patient management Pebbles Woodard NP (Vanchtein) Jun 17, 2017 12:24
--- NOTE | 2017-06-18 03:15 | Discharge Summary 2 SIG ---
SUMMARY DATE OF ADMISSION: 06/14/2017 DATE OF EXPIRATION: 06/15/2017. REASON FOR ADMISSION: 87 years old female with a history of chronic atrial fibrillation (on Pradaxa), stroke, and dementia, was brought to emergency department by her son due to the vaginal bleeding. Apparently, the patient had episodes of vaginal spotting and then she developed urinary retention. Nurse from the [facility] came home and placed the urinary catheter. Since then, the patient was spotting even more and had vaginal bleeding. Pads were changed about five times per day. No fever. No chills. No nausea. No vomiting. No diarrhea. The patient was initially hypotensive in the field according to paramedics. Paramedics gave bolus 500 mL of normal saline. Blood pressure responded to bolus. The patient complained of lower abdominal pain pointing to suprapubic area. Workup in the emergency room revealed no fever, in fact the patient was hypothermic as the temperature was 95. Pulse oximetry was stable on room air and blood pressure -106/52. Laboratory workup revealed acute anemia with hemoglobin -6.2, hematocrit -19.9, WBC- 24.9, INR - 1.7, potassium -6.3, BUN -30, and creatinine-2.5. Elevated LFT with AST- 221 and ALT -125. Troponin negative. ProBNP- 1150. Albumin -2.1. Urinalysis revealed +4 protein and +5 occult blood with numerous RBC to count. The patient undergone abdominal pelvis CT, which revealed bilateral hydroureter, moderate to severe right and moderate left hydronephrosis, most likely secondary to bladder outlet obstruction, thickened wall, and distended bladder filled with blood. Etiology of hematuria was not demonstrated. Noted evidence of right renal parenchymal loss indicating hydronephrosis , may be longstanding. Pneumobilia most likely indicated prior biliary intervention, however, possibility of fistula with an adjacent large duodenal diverticulum could not be completely excluded. Chronic obstructive pulmonary disease changes. The patient appeared acutely ill with acute anemia and hypotension. Patient was able to maintain her airway, not hypoxic. The patient was typed and crossed and was started on the blood transfusion of PRBC and fresh frozen plasma. Blood pressure improved. Septic workup initiated, patient was started on fluid resuscitation. Empiric antibiotics started. Hyperkalemia was treated. The patient was transferred to telemetry for further management. HOSPITAL STAY: The patient was admitted. The patient was started on the IV fluids and IV antibiotics. Infectious Disease consult and Urology consults were requested. Per Infectious Disease doctor, the patient had septic shock likely due to the genitourinary source. Blood and urine cultures were sent. The patient was started on empiric antibiotics. Pyelonephritis was likely secondary to obstructive uropathy and hydronephrosis. The patient was transfused with total of two units of packed red blood cells and one unit of fresh frozen plasma. The patient responded to transfusion with hemoglobin up to 8.4 and hematocrit -25.9. Urologist seen and evaluated the patient. According to urologist, the source of hematuria probably was vaginal bleeding. Catheter was placed, however, the patient seemed to have evacuated most of the clots already. Bladder was very spasmodic and difficult to irrigate, as per urologist. Unclear exact etiology of hematuria as per urologist, but highly unlikely related to in and out catheterization done by home health nurse few days ago. Vaginal bleeding suspected due to anticoagulation use at home. Urologist discussed findings with the patient's son and suggested that the patient may benefit from cystoscopy. Hemoglobin and hematocrit were closely monitored. Valdez was left in, manual irrigation provided as needed. The patient was a DNR/DNI status. LFTs remained elevated. Next day, WBC up to 35.8, hemoglobin down to 8.2, and hematocrit -25.1, small drop after transfusion. Renal parameters were getting worse: creatinine was up to 3.6 and BUN up to 45 . Potassium - 4.5 (after hyperkalemia was treated). The patient was on telemetry under close monitoring. Prognosis remained guarded . At 07:45 hours nurse noted asystole. The patient was DNR/DNI. The patient was pronounced at 07:45 am. Cause of : cardiopulmonary arrest. FINAL DIAGNOSES: 1. Sepsis with septic shock, likely secondary to genitourinary source. 2. Vaginal bleeding. 3. Pyelonephritis, secondary to obstructive uropathy. 4. Acute renal failure, 5. Hyperkalemia, resolved. 6. Bilateral hydronephrosis with bilateral hydroureter. 7. Acute blood loss anemia, status post blood transfusion. 8. Coagulopathy, status post fresh frozen plasma blood transfusion. 9. Transaminitis, likely secondary to shock liver due to sepsis. 10. Chronic obstructive pulmonary disease. 11. Diabetes. 12. Congestive heart failure. Isaias Vogel M.D. I have been assigned to dictate discharge summary on this account and I was not involved in the patient's management. Pebbles Woodard (Vanchtein) NMichaelPMichael DR: STEPHANIE JOB#: [id number] CC: JOSE
[2017-06-18 09:55] LABS: OTHERS PATHOLOGIST COMMENT
== END 2017-06-15 07:45 | disposition expired | DRG 871 ==
LOC: EDBD 09:58 → EDBEDREQ 10:15 → EMR 10:40 → 2W 10:50 → EDBEDREQ 11:03 → 2E 19:40
PROC: 3E1K78Z Irrigation of Genitourinary Tract using Irrigating Substance, Via Natural or Artificial Opening (ICD-10-PCS; principal; 2017-06-14)
PROC: 0T9B70Z Drainage of Bladder with Drainage Device, Via Natural or Artificial Opening (ICD-10-PCS; principal; 2017-06-14)
PROC: 30233N1 Transfusion of Nonautologous Red Blood Cells into Peripheral Vein, Percutaneous Approach (ICD-10-PCS; principal; 2017-06-14)
PROC: 30233K1 Transfusion of Nonautologous Frozen Plasma into Peripheral Vein, Percutaneous Approach (ICD-10-PCS; principal; 2017-06-14)
DX: A41.9 Sepsis, unspecified organism (principal); R65.21 Severe sepsis with septic shock; K72.00 Acute and subacute hepatic failure without coma; N17.9 Acute kidney failure, unspecified; D68.9 Coagulation defect, unspecified; D62 Acute posthemorrhagic anemia; I50.9 Heart failure, unspecified; K57.32 Diverticulitis of large intestine without perforation or abscess without bleeding; I48.2 Chronic atrial fibrillation; N32.89 Other specified disorders of bladder; Z94.7 Corneal transplant status; N13.30 Unspecified hydronephrosis; N12 Tubulo-interstitial nephritis, not specified as acute or chronic; Z66 Do not resuscitate; E87.5 Hyperkalemia; J44.9 Chronic obstructive pulmonary disease, unspecified; E11.9 Type 2 diabetes mellitus without complications; N30.91 Cystitis, unspecified with hematuria; N32.0 Bladder-neck obstruction; N93.9 Abnormal uterine and vaginal bleeding, unspecified; R00.0 Tachycardia, unspecified; F03.90 Unspecified dementia, unspecified severity, without behavioral disturbance, psychotic disturbance, mood disturbance, and anxiety; K57.10 Diverticulosis of small intestine without perforation or abscess without bleeding; R33.9 Retention of urine, unspecified; H40.9 Unspecified glaucoma; M47.9 Spondylosis, unspecified; Z79.84 Long term (current) use of oral hypoglycemic drugs; Z86.73 Personal history of transient ischemic attack (TIA), and cerebral infarction without residual deficits; Z74.01 Bed confinement status; Z90.49 Acquired absence of other specified parts of digestive tract
CPT/HCPCS: 36415; 71010; 74176; 80053; 81001; 82962; 83880; 84132; 84443; 84484; 85007; 85025; 85610; 85730; 86850; 86900; 86901; 86920; 86927; 87040; 87086; 99291; J1815